=== PATIENT | female | born 1995 | race Caucasian/White ===

== ENCOUNTER 2021-11-18 21:03 | Outpatient (CLI) | payer OTHER | END 2021-11-18 23:47 | disposition home or self-care (01) | LOC: GENOP 21:03 | DX: O99.891 Other specified diseases and conditions complicating pregnancy (principal); R10.30 Lower abdominal pain, unspecified; Z3A.27 27 weeks gestation of pregnancy | CPT/HCPCS: 81001; G0463; J0696 ==